=== PATIENT | male | born 1955 | race Caucasian/White ===

== ENCOUNTER 2020-04-18 19:07 | Inpatient (IN) | payer OTHER, SELFPAY ==
[~2020-04-18] VITALS: Ht 170.2 cm; Wt 78.7 kg
[~2020-04-18 19:07] MED LIST: ENALAPRIL MALEA20 MG PO; GLIPIZIDE5 MG PO; GLYBURIDE5 MG PO; LAC PO; METFORMIN HYD1000 M1 PO; NOR5 PO; SULFAMETH/TRIME1 TA4 PO; TYLENOL WITH CO1 TA2 PO
[2020-04-18 19:09] VITALS: Ht 170.2 cm; Wt 78.7 kg
[2020-04-18 20:35] LABS: PLATELET COUNT 228 x10^3mcL (130-400); RED CELL DISTRIBUTION WIDTH 14.4 % (11.5-14.5)
[2020-04-18 20:41] LABS: BASOPHIL % 0 % (0-2)
[2020-04-18 20:45] LABS: CARBON DIOXIDE 28.6 mmol/L (21-32); CHLORIDE SERUM 96 mmol/L (98-107); GFR1 > 60 mL/min; GLUCOSE SERUM 285 mg/dL (74-106); POTASSIUM SERUM 3.7 mmol/L (3.5-5.1); SODIUM SERUM 134 mmol/L (136-145)
[2020-04-18 20:50] LABS: ALKALINE PHOSPHATASE 68 U/L (46-116); ALT/SGPT 27 U/L (16-63); AST/SGOT 31 U/L (15-37); LACTIC DEHYDROGENASE (LDH) 322 U/L (100-190)
[2020-04-18 21:04] LABS: ALBUMIN 2.8 g/dL (3.4-5.0)
[2020-04-18 21:11] LABS: UA SPECIFIC GRAVITY >=1.030 (1.005-1.035); microscopic required? YES; urine erythrocyte 1+ (NEGATIVE)
[2020-04-18 21:37] LABS: C REACTIVE PROTEIN 29.9 mg/dL (<=0.9)
[2020-04-18 23:28] VITALS: BP 100/66
[2020-04-19 06:38] VITALS: BP 125/77
[2020-04-19 07:17] LABS: CALCIUM 8.7 mg/dL (8.5-10.1); CARBON DIOXIDE 27.4 mmol/L (21-32); CREATININE SERUM 1.4 mg/dL (0.7-1.3); POTASSIUM SERUM 3.7 mmol/L (3.5-5.1)
[2020-04-19 07:34] LABS: BASOPHIL % 0.1 % (0-2); PLATELET COUNT 176 x10^3mcL (130-400)
[2020-04-19 07:40] LABS: RED CELL DISTRIBUTION WIDTH 14.7 % (11.5-14.5)
[2020-04-19 09:50] VITALS: BP 109/71
[2020-04-19 13:26] VITALS: BP 102/56
[2020-04-19 16:32] VITALS: BP 108/63
[2020-04-19 20:38] VITALS: BP 129/76
[2020-04-20 05:42] VITALS: BP 132/86
[2020-04-20 09:02] VITALS: BP 124/80
[2020-04-20 13:49] VITALS: BP 139/84
[2020-04-20 17:57] VITALS: BP 132/90
[2020-04-20 20:29] VITALS: BP 142/85
[2020-04-21 05:20] VITALS: BP 142/85
[2020-04-21 05:45] VITALS: BP 146/98
[2020-04-21 06:58] LABS: BASOPHIL % 0.3 % (0-2); PLATELET COUNT 329 x10^3mcL (130-400)
[2020-04-21 07:08] LABS: RED CELL DISTRIBUTION WIDTH 14.8 % (11.5-14.5)
[2020-04-21 07:12] LABS: CALCIUM 8.8 mg/dL (8.5-10.1); CARBON DIOXIDE 32.8 mmol/L (21-32); CHLORIDE SERUM 100 mmol/L (98-107); CREATININE SERUM 0.8 mg/dL (0.7-1.3); GFR1 > 60 mL/min; GLUCOSE SERUM 147 mg/dL (74-106); MAGNESIUM 1.7 mg/dL (1.8-2.4); POTASSIUM SERUM 3.3 mmol/L (3.5-5.1); SODIUM SERUM 138 mmol/L (136-145)
[2020-04-21 07:14] LABS: C REACTIVE PROTEIN 7.4 mg/dL (<=0.9)
[2020-04-21 08:26] VITALS: BP 143/97
[2020-04-21 12:44] VITALS: BP 140/90
[2020-04-21 17:59] VITALS: BP 135/85
[2020-04-21 20:10] VITALS: BP 142/85
[2020-04-22 04:40] VITALS: BP 132/72
[2020-04-22 06:36] LABS: BASOPHIL % 0.4 % (0-2); PLATELET COUNT 395 x10^3mcL (130-400); RED CELL DISTRIBUTION WIDTH 14.2 % (11.5-14.5)
[2020-04-22 06:48] LABS: CALCIUM 8.9 mg/dL (8.5-10.1); CARBON DIOXIDE 33.9 mmol/L (21-32); CHLORIDE SERUM 98 mmol/L (98-107); CREATININE SERUM 0.7 mg/dL (0.7-1.3); GFR1 > 60 mL/min; GLUCOSE SERUM 158 mg/dL (74-106); MAGNESIUM 1.7 mg/dL (1.8-2.4); SODIUM SERUM 138 mmol/L (136-145)
[2020-04-22 08:35] VITALS: BP 129/88
[2020-04-22 12:21] VITALS: BP 135/82
[2020-04-22 16:58] VITALS: BP 143/90
[2020-04-22 21:04] VITALS: BP 122/92
[2020-04-23 05:46] VITALS: BP 126/86
[2020-04-23 06:46] LABS: RED CELL DISTRIBUTION WIDTH 14.3 % (11.5-14.5)
[2020-04-23 07:06] LABS: PLATELET COUNT 407 x10^3mcL (130-400)
[2020-04-23 07:17] LABS: CALCIUM 8.6 mg/dL (8.5-10.1); CARBON DIOXIDE 33.7 mmol/L (21-32); CHLORIDE SERUM 97 mmol/L (98-107); CREATININE SERUM 0.7 mg/dL (0.7-1.3); GFR1 > 60 mL/min; GLUCOSE SERUM 145 mg/dL (74-106); POTASSIUM SERUM 3.2 mmol/L (3.5-5.1); SODIUM SERUM 137 mmol/L (136-145)
[2020-04-23 08:02] LABS: BAND NEUTROPHIL 0 % (0-10); BASOPHIL 0 % (0-2); MONOCYTE 21 % (0-7); SEGMENTED NEUTROPHILS 72 % (37-75)
[2020-04-23 08:03] LABS: PLATELET MORPHOLOGY PLATELETS INCREASED; rbc morphology (normal/abnorm) ABNORMAL (NORMAL)
[2020-04-23 08:54] VITALS: BP 120/79
[2020-04-23 12:20] VITALS: BP 94/65
[2020-04-23 15:49] VITALS: BP 111/99
[2020-04-23 20:00] VITALS: BP 123/84
== END 2020-04-23 22:08 | disposition short-term general hospital (02) | DRG 137 ==
LOC: ED 19:07 → DU 22:01
PROVIDERS: Emergency Medicine; Internal Medicine Pulmonary Disease; ADMIT Internal Medicine Pulmonary Disease
DX: U07.1 COVID-19 (principal); N17.9 Acute kidney failure, unspecified; E11.65 Type 2 diabetes mellitus with hyperglycemia; J12.89 Other viral pneumonia; I10 Essential (primary) hypertension; E87.70 Fluid overload, unspecified; Z79.899 Other long term (current) drug therapy; Z79.84 Long term (current) use of oral hypoglycemic drugs
CPT/HCPCS: 36600; 82962; 83880; 85378; 87804; 90732; G0378; J0456; J0696; J1644; J1650; J1815; J1940; J3475; J3535; J7030; J7050; J7060; Q0092; U0003-CS